=== PATIENT | female | born 1985 | race Caucasian/White ===

== ENCOUNTER 2024-08-16 06:41 | Day surgery (SDC) | payer OTHER, SELFPAY ==
[2024-08-10 14:20] VITALS: BMI 29.9
[2024-08-16] VITALS (16 sets, daily range): BP systolic 100–130; BP diastolic 54–82; PULSE 70–107; RESP 15–18; TEMP 36.3–37.1; O2SAT 95–99; BMI 29.0
[2024-08-16] MEDS: SCOPOLAMINE 1 PATCH TOP (06:50)
[2024-08-16] MEDS: LACTATED RINGERS 1,000 ML 42 ML IV ×2 (06:50→09:55)
[2024-08-16] MEDS: ACETAMINOPHEN 325 MG TABLET 975 MG PO (06:50)
--- NOTE | 2024-08-16 07:43 | PM.PREOP ---
Pre-operative Note Interval Note History & Physical reviewed/Exam performed by Physician: Yes Changes to H&P: No H&P completed within 30 days and has changed as indicated here:: 08/05/24
[2024-08-16] MEDS: CEFAZOLIN 2 GM/100 ML PREMIX 100 ML IV (08:13)
--- NOTE | 2024-08-16 08:22 | SUR.OPER ---
Lithotomy on padded OR bed, head on pillow, arms secured on padded arm boards at <90 degrees abduction. Legs secured in padded yellow fins stirrups.
[2024-08-16] MEDS: BUPIVACAINE 0.25% W/ EPI 30 ML VIAL INJ (08:26)
--- NOTE | 2024-08-16 09:45 | P.OP_ITS ---
Operative Date/Time/Diagnoses Date of procedure: 08/16/24 Time of procedure: 09:45 Pre-op diagnosis: Symptomatic cystocele and rectocele Post-op diagnosis: same Procedure & Clinicians Procedure: Procedures Operation Date: 08/16/24 07:45 Actual Procedure Side Surgeon p Anterior/Posterior Repair Denisha Rojas MD Indications: 39-year-old with a symptomatic cystocele and rectocele Surgeon: Denisha Rojas Purchasing Coordinator: Gini Shaffer Anesthesia Type: General and Local Operative Notes Findings: Third-degree cystocele Third-degree rectocele Closure Type: primary Specimen(s): none Applied: catheter (To continuous drainage) and other (Betadine moistened vaginal packing in place) Estimated blood loss (mL): 75 Blood products transfused: none Procedure in detail: The patient was taken to the operating room where she was placed in the dorsal supine position. After adequate general endotracheal anesthesia was achieved, she was placed in the dorsal lithotomy position, and prepped and draped in the usual sterile fashion. A time-out was performed. 2 Allis clamps were placed at the apex of the cystocele. 6 mL of half percent Marcaine with epinephrine were injected and an incision was made with a #10 blade between the 2 Allis clamps. Wide Allis clamps were placed on the midline of the cystocele approximately 5. The mucosa was undermined using the Metzenbaum scissors and the mucosa incised in the midline moving the wide Allis clamps to the edges of the mucosa. The mucosa was dissected off the underlying fascia using an open moistened Ray-Deisi and a #10 blade. The fascia was reapproximated with 0 Vicryl with a series of horizontal mattress sutures. The excess vaginal mucosa was excised. The mucosa was closed using simple interrupted sutures with 2-0 Vicryl including the underlying fascia to close the space. The weighted speculum was removed from the vagina. Allis clamps were placed at the mucocutaneous junction at the introitus. 6 mL of half percent Marcaine with epinephrine were injected. An incision was made with a #10 blade between the 2 Allis clamps, and a triangular piece of skin and underlying subcutaneous tissue was removed. Allis clamps were placed in the midline of the rectocele. 10 mL of half percent Marcaine with epinephrine were injected submucosally. The mucosa was undermined using the Metzenbaum scissors and the mucosa incised in the midline, moving the wide Allis clamps to the mucosal edges. The underlying fascia was dissected off of th mucosa using an open moistened Ray-Deisi and a #10 blade. The fascia was reapproximated using 0 Vicryl with a series of horizontal mattress sutures. The excess vaginal mucosa was excised. The mucosa was closed using a series of simple interrupted sutures with 2-0 Vicryl including the underlying fascia to close the space. On the perineum 0 Vicryl was used to reapproximate the levator muscle. The subcutaneous layer was closed with 2-0 Vicryl. The skin was closed with 2-0 chromic in a subcuticular fashion. Hemostasis was achieved. A Betadine moistened vaginal pack was placed into the vagina. A rectal exam was done and there were no sutures palpable in the rectum. The urine was clear. Sponge, lap, and instrument counts were correct x-2. The patient tolerated the procedure well, was taken to PACU in stable condition.m Complications: none Post-operative Condition: stable Disposition: PACU Plan for aftercare: To acute care after recovery
[2024-08-16] MEDS: OXYCODONE IR 5 MG TABLET PO (09:47)
[2024-08-16] MEDS: LACTATED RINGERS 1,000 ML 100 ML IV (10:50)
[2024-08-16] MEDS: ACETAMINOPHEN 325 MG TABLET 650 MG PO ×2 (12:48→18:34)
[2024-08-16] MEDS: KETOROLAC 30 MG/ML VIAL IV ×2 (15:28→21:41)
[2024-08-16] MEDS: DOCUSATE 100 MG CAPSULE 200 MG PO (21:41)
[2024-08-16] MEDS: SODIUM CHLORIDE 0.9% FLUSH 10 ML IV ×2 (21:42→21:45)
[2024-08-17] MEDS: ACETAMINOPHEN 325 MG TABLET 650 MG PO ×2 (03:09→09:25)
[2024-08-17] MEDS: KETOROLAC 30 MG/ML VIAL IV (03:10)
[2024-08-17 06:32] LABS: Add Manual Diff / Slide Review NO; Basophils Absolute Auto 100 /uL (0-100); Basophils Percent Auto 0.9 % (0-2); Eosinophils Absolute Auto 100 /uL (0-450); Eosinophils Percent Auto 1.1 % (2-4); Hematocrit 33.6 % (36-46); Hemoglobin 11.7 g/dL (12.0-16.0); Lymphocytes Absolute Auto 2200 /uL (1100-4500); Lymphocytes Percent Auto 32.3 % (25-40); Mean Corpuscular HGB Conc 34.8 % (30-36); Mean Corpuscular Hemoglobin 31.8 PG (26-34); Mean Corpuscular Volume 91.5 fL (80-100); Monocytes Absolute Auto 600 /uL (0-900); Monocytes Percent Auto 9.4 % (3-14); Neutrophils Absolute Auto 3900 /uL (1500-7000); Neutrophils Percent Auto 56.3 % (50-75); Platelet Count 161 X10^3/uL (150-400); Red Blood Cell Count 3.67 X10^6/uL (4.0-5.2); Red Cell Distribution Width 13.2 % (11.6-14.8); White Blood Cell Count 6.9 X10^3/uL (4.5-11.0)
--- NOTE | 2024-08-17 06:47 | PC.NURSE ---
PT packing was removed this am at 0630, follow by instilling 300 cc to the bladder and discontinuing corona cathether. Pt went to the bathroom right away and voided 400 ml.
[2024-08-17 08:00] VITALS: BP 122/80; PULSE 66; RESP 16; TEMP 36.6; O2SAT 98
[2024-08-17] MEDS: DOCUSATE 100 MG CAPSULE 200 MG PO (09:24)
[2024-08-17] MEDS: SERTRALINE 50 MG TABLET 75 MG PO (09:24)
--- NOTE | 2024-08-17 09:39 | PM.DS.IH.1 ---
History of Present Illness History of Present Illness Date Patient Seen: 08/17/24 Time Patient Seen: 08:10 Chief complaint: OPB Narrative: Patient is a 39-year-old postop day # 1 status post anterior and posterior repair. She voided large amount for bladder trial. Proximally 250 cc. Tolerating a diet. No nausea or vomiting. No significant bleeding. Patient is ambulating without assistance. She is passing flatus. Discharge Providers Provider Discharge Date: 08/17/24 Primary care physician: Susan Wiley ND Discharge provider: Denisha Rojas MD Summary Hospital Course Discharge Diagnosis: Symptomatic cystocele and rectocele Hospital Course: Patient is a 39-year-old who presented on August 16, 2024 for a scheduled anterior and posterior repair. She underwent this procedure without complication. On postop day # 1 she was able to empty her bladder. She has tolerating a diet. No nausea or vomiting. Pain well controlled. She is ambulating without assistance. Status at Discharge Cognitive/behavioral status at discharge: oriented Functional status at discharge: independent ambulation Overall status at discharge: patient is progressing back to baseline Time Spent with Patient Time spent: Less than 30 minutes Exam Vital Signs (past 8 hours): Oxygen Delivery Method Room Air Oxygen Flow Rate 0 Narrative Exam Narrative: Generally: Patient is sitting up in bed, no acute distress Lungs: Clear to auscultation bilaterally Cardiovascular: Regular rate and rhythm Perineum: Small amount of old blood Objective Labs 08/17/24 06:04 Labs: Laboratory Results - last 24 hr 08/17/24 06:04 WBC 6.9 RBC 3.67 L Hgb 11.7 L Hct 33.6 L MCV 91.5 MCH 31.8 MCHC 34.8 RDW 13.2 Plt Count 161 Neut % (Auto) 56.3 Lymph % (Auto) 32.3 [place] % (Auto) 9.4 Eos % (Auto) 1.1 L Baso % (Auto) 0.9 Neut # (Auto) 3900 Lymph # (Auto) 2200 [place] # (Auto) 600 Eos # (Auto) 100 Baso # (Auto) 100 [facility] Medical History Chicken pox (~2006) Anemia Small intestinal bacterial overgrowth (SIBO) (~2018) Hypothyroidism (~2017) Family History Father Hypertension Mother Diabetes mellitus Grandmother Breast cancer Diabetes mellitus Grandfather Hypertension Social History household members: spouse and children Smoking Status: Former smoker alcohol intake: current Discharge Assessment & Plan Assessment and Plan Assessment: Postop day # 1 status post anterior and posterior repair Patient emptying bladder well Plan of Treatment: Discharge to home Follow-up for telehealth appointment in 2 weeks Patient to call with fever, chills, or bleeding vaginally more than spotting to light No heavy lifting Discharge Plan Discharge Plan Patient Disposition: Home Provider Discharge Comment: Call with fever, chills, or bleeding vaginally more than spotting to light Ibuprofen 600 mg every 6 hours as needed Tylenol 650 mg needed Stool softener as needed Discharge orders & Medications Discharge Orders: Discharge (Order); Ordered 08/17/24 Ordered By: Denisha Rojas Prescriptions: Continued sertraline 25 mg tablet 75 mg PO DAILY Follow up/Referrals: Denisha Rojas MD [Physician] - As previously scheduled (Patient already has postop visits scheduled) Diet/Activity/Treatments Diet: Regular Activity: No heavy lifting, nothing more than a gal of milk Nothing in the vagina until after the 6 week postop visit Skin/Wound/Dressing Care Report to your healthcare provider any signs of infection, such as:: chills, fever, increased pain and unusual drainage Visit Report/Discharge Packet Instructions: DI for Cystocele and Rectocele Repair Stand Alone Forms: Patient Portal/API, Surgery Discharge Discharge Data Primary Care Provider: Susan Wiley Attending Provider: Denisha Rojas PROFNIKHIL Charge Codes Discharge inpatient/observation: [id number]
--- NOTE | 2024-08-17 10:48 | CM.DANOTE ---
Initial DCP Assessment Visit Note Reviewed EMR and team rounds for status updates. Met with pt and spouse at bedside to introduce self and role, pt was found to be awake, oriented, and expressing having good pain control. Pt lives independently with her spouse and child [place]. Pt's spouse is planning to transport pt back home, this [employer] provided a Medical Priority Boarding Pass, per their request. They decline any need for CM d/c assistance or resources at this time. Payor: [employer] Options Attending: Dr. Rojas Pt is a 39 year-old F post-op day 1 from a uterine prolapse fixation surgery. No further medical hx was provided by the attending provider. Pt did well postoperatively, was able to void, walk around independently, and pain was well controlled. They will plan to d/c and take the 4:00pm ferry home. No further assistance needed for d/c. Pt will plan to f/u OP with Dr. Rojas for post-op assessment. Discharge Planning/Care Management CM Discharge Assessment Start: 08/16/24 07:20 Freq: Status: Active Protocol: Document 08/17/24 10:47 DPL (Rec: 08/17/24 10:48 DPL [id number]) Discharge Planning Assessment Assigned Brain Wave Technician KO Jackson Advance Directives? No History Provided By Patient,Significant Other, Medical Record Has Patient been admitted in last 30 No days? Prior Living Arrangements House Household Members spouse,children Type of transporation used prior to Relies on Others admit Independent with ADL's Yes Is patient alert and oriented? Yes Comment N/A Caregiver for Another No Comment No identified home d/c needs at this time. Barriers to Discharge No Discharge Plan Home Transportation Arrangement Spouse Referrals Initiated None needed Whiteboard Updated in Patient Room with Yes name and ext. # of Brain Wave Technician Review Status In Process Please Provide Date Initial DC 08/17/24 Assessment Was Performed Pre-Anesthesia Assessment Start: 08/10/24 14:20 Freq: Status: Active Protocol: Document 08/10/24 14:20 CAB (Rec: 08/10/24 14:38 CAB [id number]) Pre-Anesthesia Assessment PAC Comment Chart review 08/10/24 Patient Information Reviewed Via Chart Review Primary Care Provider Allison Reis Seen Specialist in Last 12 Months Yes Specialist Seen Press Operator Apprentice Primary Language Thai Ream Cutter Required No Height 167.64 cm Weight 84.368 kg Body Mass Index (BMI) 29.9 Barriers to Learning None Hx Anesthesia Reactions Prior surgical history not identified Anesthesia Review Requested No Metal Fabricator No Smoking Status Former smoker History of Falling (Recent or History of No ) Patient is completely paralyzed or No completely immobile Mental Status Oriented to own ability Is patient on oxygen? No Hx Sleep Apnea No Currently Taking a Beta Saqib No Anti-Coagulant Therapy No Cardiac Testing No Hx Pacemaker/ICD No Pacemaker Rep Required? No Cardiac Clearance Received No Urinary Catheter Present No Hx Urinary Self Catheterization No Diabetes No Patient No Marital Status Lives With spouse,children Patient Discharge Plan Description Return Home Comment Pt lives on [facility]
--- NOTE | 2024-08-17 11:40 | PC.NURSE ---
Patient is A&OX4. VSS, afebrile on RA. She has voided after void trial. MD at bedside evaluating patient and she is cleared for discharge home today with a follow up appointment scheduled via telehealth in x2 weeks. Patient verbalizes understanding of medications, s/s of infection, activity limitations as well as follow up appointment. CM assissted with boarding ferry clearance for discharge back to [place]. She is escorted via w/ch with all belongings at 11 a.m. with to private vehicle for discharge home today with all of her personal belongings.
== END 2024-08-17 11:00 | disposition home or self-care (01) ==
LOC: OR 06:42 → AC 06:42
PROVIDERS: PCP Naturopath; Referring Provider Obstetrics & Gynecology; Visit Provider Obstetrics & Gynecology
PROC: (CPT 57260; principal; 2024-08-16 07:45)
DX: N81.10 Cystocele, unspecified (principal); N81.6 Rectocele; Z88.2 Allergy status to sulfonamides; Z87.891 Personal history of nicotine dependence
CPT/HCPCS: 57260; 36415; 81025; 85025; J0330; J0690; J1100; J1885; J2250; J2405; J2704; J3010